=== PATIENT | female | born 1995 | race Caucasian/White ===

== ENCOUNTER 2017-06-30 04:25 | Emergency (ER) | payer SELFPAY ==
[~2017-06-30 04:25] MED LIST: Amoxicillin 500 MG Cap ONE
--- NOTE | 2017-06-30 08:22 | EDM.PDOC ---
ED HPI GENERAL MEDICAL PROBLEM - General Chief Complaint: Laceration Stated Complaint: Cut finger Time Seen by Provider: 06/30/17 04:30 Source of Information: Reports: Patient History Limitations: Reports: No Limitations - History of Present Illness INITIAL COMMENTS - FREE TEXT/NARRATIVE: According to patient she was at her friend's house and having some drink and fun. She got up to go home, and when she bent down to put her shoes on, she lost balance and grabbed on to the glass table and , she is not sure if the glass broke, but she sustained a cut on her right index finger. the would has been bleeding. Has been able to move the finger, but the flap opens and bleed. No tingling or numbness. No other injuries. Pt does claims she has had few drinks tonight. Onset: Today Onset Date: 06/30/17 Onset Time: 04:00 Location: Reports: Other (right index finger) Quality: Reports: Ache Severity: Mild Improves with: Reports: None Worsens with: Reports: None Associated Symptoms: Denies: Confusion, Chest Pain, Fever/Chills, Rash, Shortness of Breath, Syncope, Weakness Right 2-Index finger Pain Score (Numeric/FACES): 5 ED ROS GENERAL - Review of Systems Review Of Systems: See Below Constitutional: Denies: Fever, Chills HEENT: Denies: Rhinitis, Sinus Problem Respiratory: Denies: Cough, Sputum Cardiovascular: Reports: Blood Pressure Problem. Denies: Chest Pain, Lightheadedness GI/Abdominal: Denies: Abdominal Pain, Nausea, Vomiting Musculoskeletal: Denies: Shoulder Pain, Foot Pain, Joint Pain, Joint Swelling Skin: Reports: Erythema. Denies: Pruritis, Rash ED EXAM, SKIN/RASH Exam: See Below Exam Limited By: Other (Pt is under influence of alcohol but not aggitatied, very talkative) General Appearance: Alert, WD/WN, No Apparent Distress Eye Exam: Bilateral Eye: EOMI, PERRL Ears: Normal External Exam, Normal Canal, Hearing Grossly Normal, Normal TMs Nose: Normal Inspection, Normal Mucosa, No Blood Throat/Mouth: Normal Inspection, Normal Lips, Normal Teeth, Normal Gums, Normal Oropharynx, Normal Voice, No Airway Compromise Head: Atraumatic, Normocephalic Neck: Normal Inspection, Supple, Non-Tender, Full Range of Motion Respiratory/Chest: No Respiratory Distress, Lungs Clear, Normal Breath Sounds, No Accessory Muscle Use, Chest Non-Tender Cardiovascular: Normal Peripheral Pulses, Regular Rate, Rhythm, No Edema, No Gallop, No JVD, No Murmur, No Rub Skin: Warm, Other (Right index finger: there is a 4 cm U shaped laceration over the palmar aspect of the finger. the laceration is a flap which starts in the middle phalynx with both limbs extending into the distal pahlynx. No tendon injury. She is able to move the small joints of the hand. The wound is acitvley bleeding. Normal neurovascular exam of the hand.) ED SKIN PROCEDURES - Laceration/Wound Repair Right Finger Lac/Wound length In cm: 4 Appearance: Superficial, Subcutaneous Distal NVT: Neuro & Vascular Intact Anesthetic Type: Local Local Anesthesia - Lidocaine (Xylocaine): 1% Plain Local Anesthetic Volume: 2cc Skin Prep: Providone-Iodine (Betadine) Closed with: Sutures Suture Size: other (5 -O) # of Sutures: 7 Suture Type: Other (monosuf) Sterile Dressing Applied: Provider Tetanus Status Addressed: Yes Complications: No Course - Vital Signs Text/Narrative:: The wound was cleaned and closed with intermittent sutures. well approximated. Tube dressing applied. Advised elevation of the hand. As the wound is deep and over the finger, empirically covered her with amox. Wound care discussed and education given. Advised to have suture removed in 7-10 days at her primary care providers clinic. Last Recorded V/S: Last Vital Signs Temp 98.5 F 06/30/17 04:47 Pulse 125 H 06/30/17 04:47 Resp 20 06/30/17 04:47 BP 149/99 H 06/30/17 04:47 Pulse Ox 97 06/30/17 04:47 Departure - Departure Time of Disposition: 05:30 Disposition: Home, Self-Care 01 Condition: Good Clinical Impression: Finger laceration - Discharge Information Referrals: PCP,None [Primary Care Provider] - Forms: ED Department Discharge Additional Instructions: Keep drsg on for 48 hours, do not get drsg wet. Follow up with primary MD in 7 day for suture removal. Take Amoxicillin 500mg three times a day until gone. - Problem List & Annotations (1) Finger laceration SNOMED Code(s): 028329544 Code(s): S61.219A - LACERATION W/O FB OF UNSP FINGER W/O DAMAGE TO NAIL, INIT Status: Acute - Problem List Review Problem List Initiated/Reviewed/Updated: Yes - Assessment/Plan Assessment:: right index finger laceration 4 cm long Plan: Advised elevation of the hand. As the wound is deep and over the finger, empirically covered her with amox. Wound care discussed and education given. Advised to have suture removed in 7-10 days at her primary care providers clinic.
== END 2017-06-30 05:35 | disposition home or self-care (01) ==
LOC: LB.ED 04:25
DX: S61.210A Laceration without foreign body of right index finger without damage to nail, initial encounter (principal); W25.XXXA Contact with sharp glass, initial encounter
CPT/HCPCS: 12002; 99283; A9270; 99282

== ENCOUNTER 2024-10-27 17:06 | Emergency (ER) | payer SELFPAY ==
[2024-10-27 17:52] LABS: HEMATOCRIT 41.9 % (37.0-47.0); HEMOGLOBIN 13.7 g/dL (11.5-16.5); MEAN CORPUSCULAR HEMOGLOBIN 27.8 pg (27.0-32.0); MEAN CORPUSCULAR HGB CONC 32.7 g/dL (31.0-35.0); MEAN PLATELET VOLUME 10.3 fL (6.0-10.0); RED BLOOD CELL COUNT 4.92 M/uL (3.80-5.80); WHITE BLOOD CELL COUNT,WBC 11.5 K/uL (4.0-11.0)
[2024-10-27 18:12] LABS: ALANINE AMINOTRANSFERASE,ALT 30 U/L (12-78); ALBUMIN 3.6 g/dL (3.4-5.0); ALKALINE PHOSPHATASE 77 U/L (46-116); ANION GAP 10.2 mmol/L (5.0-15.0); ASPARTATE AMNIOTRANSFERASE,AST 13 U/L (15-37); BILIRUBIN TOTAL 0.4 mg/dL (0.0-1.0); BLOOD UREA NITROGEN,BUN 16 mg/dL (8-26); BUN/CREATININE RATIO 28.6 (6-25); CALCIUM 8.9 mg/dL (8.5-10.1); CARBON DIOXIDE,CO2 29.9 mmol/L (21.0-32.0); CHLORIDE,CL 103 mmol/L (98-107); CREATININE 0.56 mg/dL (0.55-1.02); ESTIMATED GFR 126 mL/min (>60); GLUCOSE RANDOM 97 mg/dL (74-100); POTASSIUM,K 4.1 mmol/L (3.5-5.1); PROTEIN TOTAL,TP 7.2 g/dL (6.4-8.2); SODIUM,NA 139 mmol/L (136-145)
[2024-10-27 18:16] LABS: APPEARANCE,URINE CLEAR (CLEAR); BILIRUBIN,URINE NEGATIVE (NEGATIVE); COLOR,URINE YELLOW; GLUCOSE,URINE NEGATIVE (NEGATIVE); KETONES,URINE NEGATIVE (NEGATIVE); LEUKOCYTE ESTERASE,URINE NEGATIVE (NEGATIVE); NITRITE,URINE NEGATIVE (NEGATIVE); OCCULT BLOOD,URINE NEGATIVE (NEGATIVE); PH,URINE 5.5 (5.0-8.0); PROTEIN,URINE NEGATIVE (NEGATIVE); UROBILINOGEN,URINE 0.2 E.U./dL (0.2-1.0)
[2024-10-27] MEDS: Iopamidol 612 MG/ML 100 ML Bottle IV PRN (19:19)
[2024-10-27] MEDS: Sodium Chloride 0.9% 50 ML SDV FLUSH SCH (19:19)
[2024-10-27] MEDS: Ketorolac 15 MG/ML SDV IVPUSH ONE (20:10)
== END 2024-10-27 20:15 | disposition home or self-care (01) ==
LOC: LB.ED 17:06
DX: R10.11 Right upper quadrant pain (principal); Z79.899 Other long term (current) drug therapy
CPT/HCPCS: 36415; 74177; 80053; 81003; 81025; 85027; 96374; 99284; J1885; J3490; Q9967